=== PATIENT | female | born 1945 | race Caucasian/White ===

== ENCOUNTER → 2016-07-01 | Outpatient (CLI) | payer OTHER, MEDICARE ==
[~2016-07-01] MED LIST: ASMIN/30 INH; DIPH-437 PO; KETO2CRE14 TOP; MONT1TAB3 PO; OMEP20CA9 PO
[2016-07-01 17:36] LABS: BASO % 0.5 %; BASO ABS # 0.03 K/uL (0-0.2); COMPLETE YES; EOS % 1.2 %; HEMATOCRIT 47.4 % (37-47); IG% 0.2 %; LYMPH ABS # 1.58 K/uL (1.2-3.4); MEAN CELL VOLUME 95.2 fL (80-100); MEAN CORPUSCULAR HEMOGLOBIN 30.1 pg (25-34); MEAN CORPUSCULAR HGB CONC 31.6 g/dl (32-36); MEAN PLATELET VOLUME 11.9 fL (7.4-10.4); MONO % 8.9 %; NEUT % 62.2 %; PLATELET COUNT 230 K/uL (130-400); RED BLOOD COUNT 4.98 M/uL (4.2-5.4); WHITE BLOOD COUNT 5.86 K/uL (4.8-10.8)
[2016-07-01 17:59] LABS: ALT/SGPT 46 U/L (12-78); AST/SGOT 22 U/L (15-37); BLOOD UREA NITROGEN 18 mg/dl (7-18); CALCIUM 9.5 mg/dl (8.5-10.1); CARBON DIOXIDE 29 mmol/L (21-32); CHLORIDE 110 mmol/L (98-107); CREATININE 0.94 mg/dl (0.60-1.20); GLUCOSE 104 mg/dl (70-99); MAGNESIUM 2.5 mg/dl (1.8-2.4); POTASSIUM 4.3 mmol/L (3.5-5.1); SODIUM 144 mmol/L (136-145)
[2016-07-01 18:02] LABS: ALKALINE PHOSPHATASE 83 U/L (45-117)
[2016-07-01 20:18] LABS: LYME DISEASE AB IGG NEG (NEG); LYME DISEASE AB IGM NEG (NEG)
--- NOTE | 2016-07-08 06:34 | CODING QUERY MEDICAL NECESSITY ---
CQSUPPORTING DIAGNOSIS NEEDED A supporting diagnosis is required for the test/procedure performed on this patient in order for us to be reimbursed by the patient's insurance. Please provide a supporting diagnosis for the following test/procedure listed below next to the test name along with your signature. *If there is no additional diagnosis for this patient that would support the following test/procedure please document that below next to the test/procedure. Test(s)/Procedure(s) that require a supporting diagnosis: DOS 07/01/16 VITAMIN D TEST Provider Signature: Date: Thank you Homa Marinelli Health Information Management Once completed, please kindly fax back to [phone] For questions please call [phone]
== END | disposition home or self-care (01) ==
LOC: C.LABPVFM 11:33
PROVIDERS: ATTEND Family Medicine
DX: R53.83 Other fatigue (principal); E55.9 Vitamin D deficiency, unspecified

== ENCOUNTER → 2016-07-06 | Outpatient (CLI) | payer OTHER, MEDICARE ==
--- NOTE | 2016-07-06 09:17 | DIAGNOSTIC IMAGING REPORT ---
ULTRASOUND EXAM AAA SCREEN CLINICAL HISTORY: Z13.6 Screening for AAA COMPARISON STUDY: No previous studies for comparison. FINDINGS: There is no evidence of abdominal aortic aneurysm. The maximal aortic diameter is 28 mm. The right iliac measures 13 mm in maximal diameter. The left iliac measures 12 mm in maximal diameter. The liver is of slightly increased echogenicity. Hepatic steatosis cannot be excluded. IMPRESSION: No evidence of abdominal aortic aneurysm. Electronically signed by: Andrez Sy M.D. 07/06/2016 9:16 AM Dictated Date/Time: 07/06/2016 9:15 AM
== END | disposition home or self-care (01) ==
LOC: C.ULTR 08:47
PROVIDERS: ATTEND Family Medicine
DX: Z13.6 Encounter for screening for cardiovascular disorders (principal)

== ENCOUNTER → 2016-07-23 | Outpatient (CLI) | payer OTHER, MEDICARE ==
--- NOTE | 2016-07-23 14:04 | DIAGNOSTIC IMAGING REPORT ---
CHEST CT WITHOUT CONTRAST CT DOSE: 836.29 mGy.cm HISTORY: J45.909 [id number] BmjlsF81.0 KbptvwpjQ61.2 Abnormal PFTs (pulmon TECHNIQUE: Multiaxial CT images of the chest were performed without contrast. COMPARISON: None. FINDINGS: Bibasilar linear densities favor subsegmental atelectasis. No focal lung consolidations to suggest pneumonia. There multiple scattered 3 mm indeterminate pulmonary nodules seen within the upper lung zones. There are approximately 20 nodules in total. No suspicious lytic or blastic osseous lesions. Calcified nodule within the left thyroid lobe measuring 9 mm. Tiny hiatus hernia. Hepatic steatosis. Focal fatty sparing at the caudate lobe. A 9 mm hypodense lesion within the left hepatic lobe is too small to characterize. The visualized spleen and adrenal glands are unremarkable. Normal caliber thoracic aorta. The heart is normal in size. No pneumothorax. No pleural effusions. IMPRESSION: 1. No focal lung consolidations to suggest pneumonia. Bibasilar linear densities favor subsegmental atelectasis. 2. There are approximately 20 nodules scattered within the bilateral upper lung zones measuring up to 3 mm in size. These are indeterminate but favor benign inflammatory/infectious process. Six-month chest CT follow-up can be performed to ensure stability. 3. Hepatic steatosis. Electronically signed by: Jay Esteves M.D. 07/23/2016 2:03 PM Dictated Date/Time: 07/23/2016 1:54 PM
--- NOTE | 2016-07-23 14:35 | DIAGNOSTIC IMAGING REPORT ---
SINUSES MIN 3 VIEWS ROUTINE CLINICAL HISTORY: J31.0 [id number] COMPARISON STUDY: None. FINDINGS: The paranasal sinuses and mastoid air cells are clear. No fluid levels. The nasal septum is essentially midline. Lamina papyracea and orbital floors appear intact. IMPRESSION: The paranasal sinuses and mastoid air cells are clear. Electronically signed by: Jay Esteves M.D. 07/23/2016 2:34 PM Dictated Date/Time: 07/23/2016 2:33 PM
== END | disposition home or self-care (01) ==
LOC: C.CTS 13:24
PROVIDERS: ATTEND Internal Medicine Critical Care Medicine
DX: J31.0 Chronic rhinitis (principal); J45.909 Unspecified asthma, uncomplicated; J47.9 Bronchiectasis, uncomplicated; R05 Cough; R94.2 Abnormal results of pulmonary function studies; R91.8 Other nonspecific abnormal finding of lung field; K76.0 Fatty (change of) liver, not elsewhere classified

== ENCOUNTER → 2016-07-29 | Outpatient (CLI) | payer OTHER, MEDICARE ==
--- NOTE | 2016-07-30 14:05 | MAMMOGRAPHY REPORT ---
BILATERAL DIGITAL SCREENING MAMMOGRAM WITH CAD: 07/29/2016 CLINICAL HISTORY: Routine screening. Patient has no complaints. TECHNIQUE: Bilateral CC, MLO and right cleavage views were obtained. Current study was also evaluat ed with a Computer Aided Detection (CAD) system. COMPARISON: Comparison is made to exams dated: 07/20/2013 mammogram, 11/19/2014 mammogram, 06/24/2010 mammogram - [facility], 05/27/2006, and 05/27/2006. BREAST COMPOSITION: The tissue of both breasts is almost entirely fatty. FINDINGS: There is a circumscribed 4 mm mass in the 3:00 middle one third of the left breast, that has slowly increased in size compared to prior available mammograms. Although this could represent a cyst, definitive characterization with targeted ultrasound is recommended. There are stable postsurgical changes in the 11:00 to 12:00 right breast, with 3 punctate densities remaining near the surgical site. No other suspicious mass, architectural distortion or cluster of microcalcifications is seen. IMPRESSION: ACR BI-RADS CATEGORY 0: INCOMPLETE EVALUATION: NEED ADDITIONAL IMAGING EVALUATION The circumscribed 4 mm mass in the left breast needs additional evaluation. The patient will be called to schedule an appointment. Approximately 10% of breast cancers are not detected with mammography. A negative mammographic repor t should not delay biopsy if a clinically suggestive mass is present. Tiffani Philippe M.D. ay/:07/29/2016 15:25:54 [employer] Mechanic: Dillon RIVERA(Yin)(Peña), [facility] letter sent: Addl Imaging 0 BI-RADS Code: ACR BI-RADS Category 0: Incomplete Evaluation: Need Additional Imaging Evaluation
== END | disposition home or self-care (01) ==
LOC: C.MAMM 13:43
PROVIDERS: ATTEND Obstetrics & Gynecology
DX: Z12.31 Encounter for screening mammogram for malignant neoplasm of breast (principal); N63 Unspecified lump in breast

== ENCOUNTER → 2016-08-12 | Outpatient (CLI) | payer OTHER, MEDICARE ==
--- NOTE | 2016-08-12 17:13 | MAMMOGRAPHY REPORT ---
UNILATERAL LEFT DIGITAL DIAGNOSTIC MAMMOGRAM TOMOSYNTHESIS AND TARGETED LEFT ULTRASOUND: 08/12/2016 CLINICAL HISTORY: Callback from screening mammogram for left breast mass. TECHNIQUE: Breast tomosynthesis in addition to standard 2D mammography was performed. Spot compress ion left CC and MLO 2-D and tomosynthesis images were obtained. COMPARISON: Comparison is made to exams dated: 07/29/2016 mammogram, 11/19/2014 mammogram, 07/20/2013 m ammogram, 06/24/2010 mammogram - [facility], 05/27/2006, and 05/27/2006. BREAST COMPOSITION: The tissue of the left breast is almost entirely fatty. FINDINGS: Spot compression views of the left breast demonstrate a persistent oval circumscribed 5 mm mass within the left breast at approximately 3:00. Targeted ultrasound was performed of the region o f the mammographic mass. In the left breast at 3:00 periareolar region, there is an oval circumscrib ed anechoic 4 x 4 x 2 mm mass. This corresponds with the mammographic mass and is consistent with a benign simple cyst. IMPRESSION: ACR BI-RADS CATEGORY 2: BENIGN, TARGETED ULTRASOUND ACR BI-RADS CATEGORY 2: BENIGN Benign 4 mm simple cyst in the left breast at 3:00 on ultrasound, which corresponds with the mammogra phic mass. There is no mammographic or targeted sonographic evidence of malignancy. A 1 year screeni ng mammogram is recommended. The patient has been verbally notified of the results. Approximately 10% of breast cancers are not detected with mammography. A negative mammographic report should not delay biopsy if a clinically suggestive mass is present. Kindra Garcia M.D. ah/:08/12/2016 13:08:46 [employer] Superintendent: Lula RIVERA(Yin)(M), [facility] letter sent: Normal /2 BI-RADS Code: ACR BI-RADS Category 2: Benign Ultrasound BI-RADS: ACR BI-RADS Category 2: Benign
== END | disposition home or self-care (01) ==
LOC: C.MAMM 12:47
PROVIDERS: ATTEND Obstetrics & Gynecology
DX: N63 Unspecified lump in breast (principal); N60.02 Solitary cyst of left breast

== ENCOUNTER → 2016-08-26 | Outpatient (CLI) | payer OTHER, MEDICARE ==
[2016-08-26 12:53] LABS: BASO % 0.3 %; BASO ABS # 0.02 K/uL (0-0.2); COMPLETE YES; EOS % 0.6 %; HEMATOCRIT 44.9 % (37-47); IG% 0.3 %; LYMPH % 25.9 %; LYMPH ABS # 1.62 K/uL (1.2-3.4); MEAN CELL VOLUME 94.7 fL (80-100); MEAN CORPUSCULAR HEMOGLOBIN 30.8 pg (25-34); MEAN CORPUSCULAR HGB CONC 32.5 g/dl (32-36); MEAN PLATELET VOLUME 11.7 fL (7.4-10.4); MONO % 7.8 %; NEUT % 65.1 %; PLATELET COUNT 204 K/uL (130-400); RED BLOOD COUNT 4.74 M/uL (4.2-5.4); WHITE BLOOD COUNT 6.25 K/uL (4.8-10.8)
[2016-08-26 13:05] LABS: INR 1.1 (0.9-1.1); PROTHROMBIN TIME (PATIENT) 11.6 SECONDS (9.0-12.0)
[2016-08-26 13:27] LABS: CALCIUM 9.1 mg/dl (8.5-10.1)
[2016-08-26 13:31] LABS: ALT/SGPT 45 U/L (12-78); AST/SGOT 27 U/L (15-37); BLOOD UREA NITROGEN 19 mg/dl (7-18); BUN/CREATININE RATIO 17.1 (10-20); CARBON DIOXIDE 26 mmol/L (21-32); CHLORIDE 111 mmol/L (98-107); GLUCOSE 103 mg/dl (70-99); SODIUM 144 mmol/L (136-145)
[2016-08-26 13:33] LABS: ALKALINE PHOSPHATASE 74 U/L (45-117)
== END | disposition home or self-care (01) ==
LOC: C.LABPVFM 10:40
PROVIDERS: ATTEND Internal Medicine Critical Care Medicine
DX: J45.909 Unspecified asthma, uncomplicated (principal); R05 Cough; R00.2 Palpitations; J47.9 Bronchiectasis, uncomplicated

== ENCOUNTER 2016-09-03 06:31 | Day surgery (SDC) | payer OTHER, MEDICARE ==
[~2016-09-03] VITALS: Ht 165.1 cm; Wt 112.0 kg
[2016-09-03] VITALS (16 sets, daily range): BP systolic 116–139; BP diastolic 61–97; PULSE 65–84; TEMP 36.4–36.7; O2SAT 93–100; Ht 165.1 cm; Wt 112.0 kg
[2016-09-03] MEDS ORDERED: LIDOCAINE 4% W/AFRIN NASAL SOLN 4ML ONE (06:32)
[2016-09-03] MEDS ORDERED: LIDOCAINE HCL 2% LOCAL 50ML VIAL INFIL ONE (06:32)
[2016-09-03] MEDS ORDERED: FENTANYL CITRATE INJ 50 MCG/1 ML 2 ML VIAL IV ONE (06:32)
[2016-09-03] MEDS ORDERED: MIDAZOLAM HCL 5 MG/ML 1 ML VIAL IV ONE (06:32)
[2016-09-03] MEDS ORDERED: NURSING VERBAL MED ORDER ONE ×2 (07:48→08:45)
--- NOTE | 2016-09-03 07:59 | History & Physical Bridge Note ---
H&P Re-Evaluation Bridge Note: I have examined the patient, reviewed the History & Physical and in the interval since the performance of the History & Physical I have noted the following changes of clinical significance: No changes noted
--- NOTE | 2016-09-03 07:59 | History and Physical ---
History & Physical Date Sep 03, 2016. History of Present Illness 70-year-old female here for follow-up on abnormal pulmonary function studies and abnormal CT scan, chronic bronchitis: Past Medical/Surgical History 70-year-old female here for follow-up on abnormal pulmonary function studies and abnormal CT scan, chronic bronchitis: The patient is transferred from Dr. Ritter Covarrubias and she has had a chronic history bronchiectasis with recurrent bouts since 2004. With this we ordered repeat pulmonary function studies and high-resolution CT scan of the lungs for further evaluation. Myself and the patient went through her pulmonary function test and there were notably within normal limits but some mild restrictive ventilatory disease most likely secondary to obesity her CT from 07/23/2016 did show bibasilar linear densities possible atelectasis, multiple bilateral upper lobe nodules 3 mm or less in size and some signs of atelectasis in the right middle lobe along with hepatic steatosis. At this time the patient denies: Productive cough, fever, chills, dyspnea on exertion, pleurisy or classic cardiac chest pain. 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 History of Biopsy Breast Open 2. History of Dental Surgery 3. History of Tonsillectomy Family History 1. Family history of Dementia 2. Family history of PAD (peripheral artery disease) 3. Family history of Congestive Heart Failure 4. Family history of abdominal aortic aneurysm 5. Family history of Breast Cancer 6. Denied: Family history of Colon Cancer 7. Family history of No Significant Family History 8. Denied: Family history of Ovarian Cancer Social History Denied: History of Alcohol Denied: History of Current Smoker Denied: History of Drug Use Insufficient social support (Z65.8) Never smoker Current Meds 1. Asmanex 60 Metered Doses 220 MCG/INH Inhalation Aerosol Powder Breath Activated; 2. Vortex Valved Holding Chamber Device; use with albuterol; 3. ProAir HFA 108 (90 Base) MCG/ACT Inhalation Aerosol Solution; INHALE 2 PUFFS 4. Ketoconazole 2 % External Cream; APPLY A THIN LAYER TO AFFECTED AREA(S) TWICE 5. Qnasl 80 MCG/ACT Nasal Aerosol Solution; INSTILL 2 SQUIRT Twice daily; 6. Vitamin D (Ergocalciferol) 41253 UNIT Oral Capsule; TAKE 1 CAPSULE WEEKLY 7. Acetaminophen 500 MG CAPS; Takes on a PRN basisl 8. Asmanex 120 Metered Doses 220 MCG/INH Inhalation Aerosol Powder Additional History Hepatic Disease: No Endocrine Disorder: No Kidney Disease: No Hypertension: No Heart Disease: No Bleeding Tendencies: No Infectious Diseases: No Allergies Coded Allergies: NO KNOWN DRUG ALLERGIES (Verified Allergy, Unknown, ., 09/03/16) Home Medications Scheduled Ketoconazole 2% (Nizoral 2%), 1 APPLN TOP PRN Mometasone Furoate (Asmanex Twisthaler 30 Me), 1 PUFF INH BID Montelukast Sodium (Singulair), 10 MG PO QAM Scheduled PRN Diphenhydramine-Acetaminophen (Tylenol Pm), 1 TAB PO HS PRN for Sleep Omeprazole (Prilosec), 20 MG PO QAM PRN for PN Physical Examination Skin: warm/dry, no rash Eyes: normal inspection, EOMI, sclerae normal ENT: normal ENT inspection, pharynx normal Head: normocephalic, atraumatic Neck: supple, no adenopathy, trachea midline Respiratory/Chest: lungs clear, normal breath sounds, no respiratory distress Cardiovascular: regular rate, rhythm, no edema, no murmur Abdomen / GI: normal bowel sounds, non tender Back: normal inspection Extremities: normal inspection, normal range of motion Neurologic/Psych: no motor/sensory deficits, alert, normal reflexes, oriented x 3 Diagnosis 70-year-old female here for follow-up on abnormal pulmonary function studies and abnormal CT scan: ASA Classification: ASA Class II Plan of Treatment Bronchoscopy with BAL for proximal airway evaluation and chronic infectious agent evaluation.
[2016-09-03] MEDS ORDERED: D5W AND 1/2NSS 1,000 ML IV SCH (08:00)
--- NOTE | 2016-09-03 08:00 | Procedure Note ---
Pre-Mod Sedation Assessment General Date of Moderate Sedation: Sep 03, 2016. Vital Signs: Vital Signs Past 12 Hours Date Time Temp Pulse Resp B/P (MAP) Pulse Ox O2 Delivery O2 Flow Rate FiO2 09/03/16 06:56 36.6 75 20 124/61 (82) 94 Room Air Review Cardiovascular: regular rate, rhythm, no edema, no gallop, no JVD, no murmur, normal peripheral pulses Abdomen: normal bowel sounds, non tender, soft, no organomegaly, no pulsatile mass Lungs: chest non-tender, lungs clear, normal breath sounds, no respiratory distress, no accessory muscle use Airway Class: II Pre-Sedation Airway Assessment Oral Cavity: Capped Teeth Able to Visualize Vocal Cords: Yes Short Thick Neck: Yes Hx of Sleep Apnea: No Smoking Status: Never Smoker Mallampati Classification: Class II ASA Classification: Class II Procedure Planning Contraindications-for Mod Sed: None Yes Notes The planned sedation has been discussed with the patient and consent obtained. I have identified the patient, determined the appropriateness of sedation and have assessed the patient immediately prior to the procedure. All medicine(s) and interventions are by my order.
[2016-09-03] MEDS ORDERED: MIDAZOLAM HCL 1 MG/ML 2ML VIAL IV SCH (09:00)
[2016-09-03] MEDS ORDERED: FENTANYL CITRATE INJ 50 MCG/1 ML 2 ML VIAL IV SCH (09:00)
--- NOTE | 2016-09-03 09:03 | Procedure Note ---
Post-Moderate Sedation Plan General Date of Moderate Sedation Sep 03, 2016. Vital Signs: Vital Signs Past 12 Hours Date Time Temp Pulse Resp B/P (MAP) Pulse Ox O2 Delivery O2 Flow Rate FiO2 09/03/16 08:45 67 20 119/78 95 Nasal Cannula 4 09/03/16 08:40 69 16 118/78 95 Nasal Cannula 4.0 09/03/16 08:35 84 16 128/75 93 Mask 8.0 09/03/16 08:30 74 14 116/74 98 Mask 6.0 09/03/16 08:25 67 14 125/76 98 Mask 6.0 09/03/16 08:20 68 20 128/79 97 Mask 6.0 09/03/16 08:15 69 18 133/86 99 Mask 6.0 09/03/16 08:06 79 18 139/97 100 Mask 6.0 09/03/16 07:59 36.6 75 20 124/61 94 Room Air 09/03/16 06:56 36.6 75 20 124/61 (82) 94 Room Air Review - Discharge Plan Post Moderate Sedation Plan: On clinical assessment, the patient appears to have tolerated the conscious sedation without complications. Patient is recovering as anticipated. Patient will continue to be monitored by nursing and may be discharged when conscious sedation discharge criteria are met.
--- NOTE | 2016-09-03 09:05 | Bronchoscopy Procedure Note ---
Bronchoscopy Procedure Note Procedure: Bronchoscopy, conscious sedation, bronchial lavage right middle lobe Consent: Obtained through the patient placed into the chart Pre-procedural diagnosis: Chronic bronchiectasis Post-procedural diagnosis: Chronic bronchiectasis Start time: 817 End time: 838 Total time: 21 minutes Analgesia: 2% liquid lidocaine: Via nebulizer 4% gel lidocaine: Via right naris 2% liquid lidocaine: Via bronchoscopy Sedation: Versed IV: 2 mg Fentanyl IV: 50 g Procedure: The [employer] video bronchoscope was used for this procedure and passed down through the right naris Right naris/posterior naris/posterior oropharynx: Anatomically within normal limits Glottis: Anatomically within normal limits Vocal cords: Proper abduction and abduction, anatomically within normal limits Subglottis/trachea/Archana: Anatomically within normal limits Right bronchial tree: Right mainstem bronchus: Anatomically within normal limits Right upper lobe: Anatomically within normal limits Bronchus intermedius: Anatomically within normal limits Right middle lobe: Anatomically within normal limits Right lower lobe: Anatomically within normal limits Findings: No significant findings noted Left bronchial tree: Left mainstem bronchus: Anatomically within normal limits Left upper lobe: Anatomically within normal limits Lingula: Anatomically within normal limits Left lower lobe: Anatomically within normal limits Findings: No significant findings noted Bronchial alveolar lavage: Right middle lobe EBL: None Complications: None Follow-up: In the [facility]
--- NOTE | 2016-09-03 13:25 | Discharge Instructions ---
Discharge Instructions Date of Service Sep 03, 2016. Admission Reason for Admission: Asthma, Cough, Abnormal Cts Discharge Discharge Diagnosis / Problem: chronic bronchitis Discharge Goals Goal(s): Diagnostic testing Activity Recommendations Activity Limitations: resume your previous activity . Current Hospital Diet Patient's current hospital diet: Regular Diet Discharge Diet Recommended Diet: Regular Diet Procedures Procedures Performed: Bronchoscopy with bronchial lavage and conscious sedation Pending Studies Studies pending at discharge: yes List of pending studies: Microbiologic analysis of the bronchial lavage Medical Emergencies . Who to Call and When: Medical Emergencies: If at any time you feel your situation is an emergency, please call 911 immediately. . Non-Emergent Contact Non-Emergency issues call your: Mold Maker Call Non-Emergent contact if: temperature is above 101.5 . . "Provider Documentation" section prepared by [place]. . VTE Core Measure Inpt VTE Proph given/why not?: Treatment not indicated
--- NOTE | 2016-09-10 09:58 | CODING QUERY MEDICAL NECESSITY ---
CQSUPPORTING DIAGNOSIS NEEDED A supporting diagnosis is required for the test/procedure performed on this patient in order for us to be reimbursed by the patient's insurance. Please provide a supporting diagnosis for the following test/procedure listed below next to the test name along with your signature. *If there is no additional diagnosis for this patient that would support the following test/procedure please document that below next to the test/procedure. Test(s)/Procedure(s) that require a supporting diagnosis: DOS 09/03/16 BLOOD GLUCOSE TESTING DONE DAY OF SURGERY Provider Signature: Date: Thank you Homa Marinelli Health Information Management Once completed, please kindly fax back to [phone] For questions please call [phone]
[2016-09-18 18:38] LABS: HERPES SIMPLEX CULT SOURCE OTHER-BRONCH WASH; HERPES SIMPLEX VIRUS CULT NOT ISOLATED (NOT ISOLATED)
== END 2016-09-03 15:55 | disposition home or self-care (01) ==
LOC: C.ACU 06:31
PROVIDERS: ATTEND Internal Medicine Critical Care Medicine
DX: J47.9 Bronchiectasis, uncomplicated (principal); R91.1 Solitary pulmonary nodule; J45.909 Unspecified asthma, uncomplicated; E66.9 Obesity, unspecified; E55.9 Vitamin D deficiency, unspecified; Z82.49 Family history of ischemic heart disease and other diseases of the circulatory system; Z80.3 Family history of malignant neoplasm of breast; R94.2 Abnormal results of pulmonary function studies

== ENCOUNTER → 2017-01-04 | Outpatient (CLI) | payer OTHER, MEDICARE ==
[2017-01-04 17:48] LABS: ALT/SGPT 47 U/L (12-78); AST/SGOT 27 U/L (15-37); BLOOD UREA NITROGEN 15 mg/dl (7-18); BUN/CREATININE RATIO 16.3 (10-20); CALCIUM 8.9 mg/dl (8.5-10.1); CARBON DIOXIDE 24 mmol/L (21-32); CHLORIDE 113 mmol/L (98-107); CREATININE 0.92 mg/dl (0.60-1.20); GLUCOSE 102 mg/dl (70-99); POTASSIUM 3.8 mmol/L (3.5-5.1); SODIUM 143 mmol/L (136-145)
[2017-01-04 18:04] LABS: ALKALINE PHOSPHATASE 80 U/L (45-117)
[2017-01-04 19:39] LABS: HEMATOCRIT 47.6 % (37-47); MEAN CELL VOLUME 93.2 fL (80-100); MEAN CORPUSCULAR HEMOGLOBIN 30.3 pg (25-34); MEAN CORPUSCULAR HGB CONC 32.6 g/dl (32-36); PLATELET COUNT 182 K/uL (130-400); RED BLOOD COUNT 5.11 M/uL (4.2-5.4); WHITE BLOOD COUNT 5.46 K/uL (4.8-10.8)
[2017-01-04 19:41] LABS: BASO % 0.4 %; BASO ABS # 0.02 K/uL (0-0.2); COMPLETE YES; EOS % 1.3 %; IG% 0.2 %; LYMPH % 24.5 %; LYMPH ABS # 1.34 K/uL (1.2-3.4); MONO % 11.4 %; NEUT % 62.2 %; PLT ESTIMATE NORMAL
[2017-01-04 20:31] LABS: ESTIMATED AVERAGE GLUCOSE 123 mg/dl; HA1C FLAG Normal (Normal)
== END | disposition home or self-care (01) ==
LOC: C.LABPVFM 11:34
PROVIDERS: ATTEND Family Medicine
DX: J45.909 Unspecified asthma, uncomplicated (principal); R53.83 Other fatigue; E55.9 Vitamin D deficiency, unspecified; E66.01 Morbid (severe) obesity due to excess calories; R73.9 Hyperglycemia, unspecified

== ENCOUNTER → 2017-01-25 | Outpatient (CLI) | payer OTHER, MEDICARE ==
--- NOTE | 2017-01-25 12:44 | DIAGNOSTIC IMAGING REPORT ---
ULTRASOUND ABDOMEN COMPLETE CLINICAL HISTORY: Generalized abdominal pain. Umbilical hernia. COMPARISON STUDY: No priors. TECHNIQUE: Real-time, grayscale, and color flow sonography of the abdomen was performed. Images are reviewed in the transverse and longitudinal planes. FINDINGS: Liver: The liver is enlarged and demonstrates heterogeneously increased echotexture consistent with severe hepatic steatosis. Note that this degrades acoustic penetration of the liver. There is no intrahepatic biliary ductal dilatation. The main portal vein is patent. A 1.1 cm cyst is noted in the left lobe. Gallbladder: The gallbladder is normal in appearance. No gallstones are identified. There is no gallbladder wall thickening or pericholecystic fluid. A sonographic Desai's sign is reportedly absent. The common bile duct measures up to 0.6 cm in diameter. Pancreas: Visualized portions of the pancreatic head and body are normal in appearance. The splenic vein is patent. Spleen: The spleen is normal in size and echotexture, measuring 9.3 cm in length. Kidneys: The kidneys are normal in size and echotexture. There is no hydronephrosis. The right kidney measures 9.7 cm in length and the left kidney measures 10.3 cm in length. No shadowing calculi are identified. Abdominal vasculature: Visualized portions of the abdominal aorta are normal in caliber. Ascites: None. Abdominal wall: Survey images at the umbilicus show a large fat-containing umbilical hernia. The hernia orifice measures up to 2.4 cm. This was partially reducible during the examination. IMPRESSION: 1. Hepatomegaly and severe hepatic steatosis. 2. No gallstones are identified. 3. Fat-containing umbilical hernia. Electronically signed by: Kaushal Cifuentes M.D. 01/25/2017 12:43 PM Dictated Date/Time: 01/25/2017 12:41 PM
== END | disposition home or self-care (01) ==
LOC: C.ULTR 11:56
PROVIDERS: ATTEND Family Medicine
DX: K42.9 Umbilical hernia without obstruction or gangrene (principal); R10.9 Unspecified abdominal pain

== ENCOUNTER → 2017-03-17 | Outpatient (CLI) | payer OTHER, MEDICARE ==
[2017-03-17 17:40] LABS: BASO % 0.5 %; BASO ABS # 0.03 K/uL (0-0.2); EOS % 1.3 %; EOS ABS # 0.08 K/uL (0-0.5); HEMATOCRIT 45.5 % (37-47); HEMOGLOBIN 14.6 g/dL (12.0-16.0); IG# 0.01 K/uL (0.00-0.02); LYMPH % 28.7 %; LYMPH ABS # 1.79 K/uL (1.2-3.4); MEAN CELL VOLUME 96.2 fL (80-100); MEAN CORPUSCULAR HEMOGLOBIN 30.9 pg (25-34); MEAN CORPUSCULAR HGB CONC 32.1 g/dl (32-36); MEAN PLATELET VOLUME 11.6 fL (7.4-10.4); MONO % 9.5 %; MONO ABS # 0.59 K/uL (0.11-0.59); NEUT % 59.8 %; NEUT ABS # 3.74 K/uL (1.4-6.5); PLATELET COUNT 205 K/uL (130-400); RED CELL DISTRIBUTION WIDTH CV 14.4 % (11.5-14.5); RED CELL DISTRIBUTION WIDTH SD 50.9 fL (36.4-46.3); WHITE BLOOD COUNT 6.24 K/uL (4.8-10.8)
[2017-03-17 17:59] LABS: ALBUMIN 3.4 gm/dl (3.4-5.0); ALT/SGPT 54 U/L (12-78); AST/SGOT 25 U/L (15-37); BLOOD UREA NITROGEN 18 mg/dl (7-18); CALCIUM 9.3 mg/dl (8.5-10.1); CARBON DIOXIDE 29 mmol/L (21-32); GLUCOSE 85 mg/dl (70-99); LIPASE 83 U/L (73-393); POTASSIUM 4.1 mmol/L (3.5-5.1); SODIUM 141 mmol/L (136-145)
[2017-03-17 18:01] LABS: ALKALINE PHOSPHATASE 72 U/L (45-117); TOTAL PROTEIN 6.5 gm/dl (6.4-8.2)
== END | disposition home or self-care (01) ==
LOC: C.LABPVFM 12:14
PROVIDERS: ATTEND Internal Medicine
DX: R10.11 Right upper quadrant pain (principal)

== ENCOUNTER → 2017-04-23 | Outpatient (CLI) | payer OTHER, MEDICARE ==
--- NOTE | 2017-04-23 10:02 | DIAGNOSTIC IMAGING REPORT ---
(CHEST) THORAX WITHOUT CT DOSE: 663.85 mGy.cm HISTORY: Bronchiectasis R94.2 Abnormal PFTs (pulmonary function tests)J47.9 Bronchiectas TECHNIQUE: Multiaxial CT images of the chest were performed without contrast. A dose lowering technique was utilized adhering to the principles of ALARA. COMPARISON: 07/23/2016 FINDINGS: No evidence for focal infiltrative change. Minimal atelectatic bronchiectatic change right middle lobe. This is unchanged from the prior study. The diffuse mid to upper lung parenchymal nodularity is stable. There is no evidence for progression. There is no significant mediastinal or hilar adenopathy. Limited evaluation the upper abdomen confirms fatty infiltration of liver. IMPRESSION: 1. Minimal stable atelectatic/bronchiectatic change right middle lobe. There are 2. Unchanged diffuse micronodular nodularity of the mid to upper lung regions bilaterally. This is stable. 3. A 1 year follow-up is suggested. The above report was generated using voice recognition software. It may contain grammatical, syntax or spelling errors. Electronically signed by: Karsten Diallo M.D. 04/23/2017 10:01 AM Dictated Date/Time: 04/23/2017 9:56 AM
== END | disposition home or self-care (01) ==
LOC: C.CTS 09:33
PROVIDERS: ATTEND Internal Medicine Critical Care Medicine
DX: J47.9 Bronchiectasis, uncomplicated (principal); R94.2 Abnormal results of pulmonary function studies

== ENCOUNTER → 2017-06-30 | Outpatient (CLI) | payer OTHER, MEDICARE | END | disposition home or self-care (01) | LOC: C.LABPVFM 10:12 | PROVIDERS: ATTEND Family Medicine | DX: E55.9 Vitamin D deficiency, unspecified (principal) ==

== ENCOUNTER → 2017-07-19 | Outpatient (CLI) | payer OTHER, MEDICARE ==
--- NOTE | 2017-07-19 13:47 | DIAGNOSTIC IMAGING REPORT ---
BILATERAL KNEES 5 VIEWS INCLUDING BILATERAL STANDING AP VIEWS CLINICAL HISTORY: Bilateral knee pain status post trauma COMPARISON: 07/19/2017 DISCUSSION: No acute fractures or dislocations are visualized. There are minor arthritic changes present. IMPRESSION: No fractures or dislocations identified. Electronically signed by: Andrez Sy M.D. 07/19/2017 1:45 PM Dictated Date/Time: 07/19/2017 1:44 PM
== END | disposition home or self-care (01) ==
LOC: C.RDSM 13:35
PROVIDERS: ATTEND Orthopaedic Surgery
DX: S89.91XA Unspecified injury of right lower leg, initial encounter (principal); S89.92XA Unspecified injury of left lower leg, initial encounter; X58.XXXA Exposure to other specified factors, initial encounter

== ENCOUNTER → 2017-10-06 | Outpatient (CLI) | payer OTHER, MEDICARE ==
[2017-10-06 17:16] LABS: BASO % 0.3 %; BASO ABS # 0.02 K/uL (0-0.2); EOS % 0.9 %; EOS ABS # 0.06 K/uL (0-0.5); HEMATOCRIT 48.8 % (37-47); HEMOGLOBIN 15.6 g/dL (12.0-16.0); IG# 0.01 K/uL (0.00-0.02); LYMPH % 27.6 %; LYMPH ABS # 1.86 K/uL (1.2-3.4); MEAN CELL VOLUME 94.4 fL (80-100); MEAN CORPUSCULAR HEMOGLOBIN 30.2 pg (25-34); MEAN PLATELET VOLUME 11.3 fL (7.4-10.4); MONO % 7.9 %; MONO ABS # 0.53 K/uL (0.11-0.59); NEUT % 63.2 %; NEUT ABS # 4.26 K/uL (1.4-6.5); PLATELET COUNT 192 K/uL (130-400); RED CELL DISTRIBUTION WIDTH CV 14.1 % (11.5-14.5); RED CELL DISTRIBUTION WIDTH SD 48.6 fL (36.4-46.3); WHITE BLOOD COUNT 6.74 K/uL (4.8-10.8)
[2017-10-06 17:39] LABS: ALBUMIN 3.5 gm/dl (3.4-5.0); ALKALINE PHOSPHATASE 69 U/L (45-117); ALT/SGPT 45 U/L (12-78); AST/SGOT 22 U/L (15-37); BLOOD UREA NITROGEN 19 mg/dl (7-18); CALCIUM 9.5 mg/dl (8.5-10.1); CARBON DIOXIDE 28 mmol/L (21-32); CHOLESTEROL 161 mg/dl (0-200); CREATININE 1.13 mg/dl (0.60-1.20); GLUCOSE 88 mg/dl (70-99); LDL CHOLESTEROL CALCULATED 92 mg/dl; POTASSIUM 4.5 mmol/L (3.5-5.1); SODIUM 142 mmol/L (136-145); TOTAL PROTEIN 6.9 gm/dl (6.4-8.2)
== END | disposition home or self-care (01) ==
LOC: C.LABPVFM 14:58
PROVIDERS: ATTEND Family Medicine
DX: R53.83 Other fatigue (principal); R42 Dizziness and giddiness; E55.9 Vitamin D deficiency, unspecified; R07.89 Other chest pain

== ENCOUNTER → 2017-10-12 | Outpatient (CLI) | payer OTHER, MEDICARE ==
--- NOTE | 2017-10-12 12:00 | DIAGNOSTIC IMAGING REPORT ---
CAROTID DOPPLER NECK ART HISTORY: Mental status change R42 Dizziness COMPARISON: None. TECHNIQUE: Real-time, grayscale, and color Doppler sonography of the carotid arteries was performed. Imaging reviewed in the transverse and longitudinal planes. All measurements were calculated based on NASCET criteria. FINDINGS: Antegrade flow is seen in the bilateral vertebral arteries. The brachial pressures are hemodynamically similar. The peak systolic velocity within the right ICA is 77. The right systolic ratio is 1.1. The peak systolic velocity within the left ICA is 58. The left systolic ratio is 0.7. IMPRESSION: No hemodynamically significant stenosis seen within the carotid arteries. The above report was generated using voice recognition software. It may contain grammatical, syntax or spelling errors. Electronically signed by: Karsten Diallo M.D. 10/12/2017 11:58 AM Dictated Date/Time: 10/12/2017 11:58 AM
== END | disposition home or self-care (01) ==
LOC: C.ULTR 11:20
PROVIDERS: ATTEND Family Medicine
DX: R42 Dizziness and giddiness (principal)

== ENCOUNTER → 2017-10-20 | Outpatient (CLI) | payer OTHER, MEDICARE ==
[~2017-10-20] MED LIST changes: +REGADENOSON 0.4 MG/5 ML SYR ONE
--- NOTE | 2017-10-23 01:03 | MYOCARDIAL PERFUSION SCAN ---
NUCLEAR SRESS TEST STUDY TITLE: ONE-DAY NUCLEAR MEDICINE TECHNETIUM-99M CARDIOLITE MYOCARDIAL PERFUSION SCAN INDICATION: Atypical chest pain, dizziness. BASELINE ECHOCARDIOGRAM: Normal sinus rhythm with a ventricular rate of 65, no significant ST abnormalities. STRESS ECHOCARDIOGRAM: With Lexiscan, heart rate king from 65 to 88 representing 59% of maximum predicted heart rate. There were no Lexiscan induced ST changes or arrhythmias. TECHNIQUE: For the stress portion of the study, 32.5 mCi of technetium-99m Cardiolite IV was injected at 11:15 a.m. on 10/20/2017. Thirty minutes following the injection, imaging of the heart was performed in multiple projections. For the rest portion of the study, 10.7 mCi of technetium-99m Cardiolite was injected IV at 9:30 a.m. One hour following the injection, imaging of the heart was performed in the same projections. FINDINGS: Rotating raw images were reviewed in detail. Arms were down with imaging. There was an anterior breast shadow noted on both stress and rest. Mild gut/liver uptake impacting the inferior imaging border of the heart. There was no significant extracardiac pathologic uptake. The short axis, vertical long axis, horizontal long axis images were reviewed in detail. There was no visual TID. There was a small primarily fixed apical perfusion defect, most consistent with artifact in the setting of breast attenuation. Low suspicion for distal LAD ischemia. LV size was normal with a calculated end-diastolic volume of 42 mL. Calculated EF was normal at 83% with no regional wall motion abnormalities. IMPRESSION: 1. Negative myocardial perfusion study for Lexiscan-induced ischemia. 2. Normal left ventricular size, ejection fraction 83% with no regional wall motion abnormalities. 3. Nondiagnostic Lexiscan EKG due to inability to reach target heart rate.
== END | disposition home or self-care (01) ==
LOC: C.NUCL 08:59
PROVIDERS: ATTEND Family Medicine
DX: R07.89 Other chest pain (principal); R42 Dizziness and giddiness; I95.1 Orthostatic hypotension